=== PATIENT | female | born 1985 | race American Indian/Alaskan Native ===

== ENCOUNTER 2016-02-26 18:11 | Emergency (ER) | payer MEDICAID ==
[2016-02-26 18:34] VITALS: BP 152/111
--- NOTE | 2016-02-26 19:33 | Emergency Department Report ---
Chief Complaint: Allergic Reaction Stated Complaint: CHEST PAIN/SKIN OUT BREAK Time Seen by Provider: 02/26/16 19:29 - HPI History of Present Illness: 30 y/o female complain of allergic reaction x 1 week .pt complain of nausea .pt state she been taking benadryl 50 mg daily x 1 week.pt complain of rash to bilateral legs and arms .pt complain of intense itching . - ROS Review of Systems: per HPI - Exam Vital Signs: Vital Signs 02/26/16 18:29 Temperature 97.9 F Pulse Rate 99 H Respiratory 22 Rate Blood Pressure 152/111 O2 Sat by Pulse 95 Oximetry Physical Exam: GENERAL: The patient is well-developed and well-nourished. Patient is in NAD. HENT: Normocephalic. Atraumatic. Patient has moist mucous membranes. Throat: No erythema, swelling or exudates. EYES: Extraocular motions are intact, PERRL NECK: Supple. No meningitic signs are noted. There is no adenopathy noted. CHEST/LUNGS: Clear to auscultation bilaterally. No wheezing, rales or rhonchi noted. There is no respiratory distress noted. HEART/CARDIOVASCULAR: Regular rate and rhythm. Normal S1 S2. No murmurs, rubs , clicks, or gallops. ABDOMEN: Abdomen is soft, nontender.. Bowel sounds normoactive. There is no abdominal distention. Negative rebound tenderness. : Deferred. SKIN: raise erythema rash noted to bilateral legs and arms with mild edema. There is no diaphoresis. NEURO: The patient is A&Ox3. The patient has no focal neurologic deficits. MUSCULOSKELETAL: There is no tenderness or deformity. There is no limitation range of motion. PSYCH: Pt has appropriate mood and affect. MSE screening note: Focused history and physical exam performed. Due to findings the following was ordered: ED Disposition for MSE Condition: Stable
== END 2016-02-26 20:44 | disposition left against medical advice (07) ==
LOC: ED 18:11
DX: T78.40XA Allergy, unspecified, initial encounter (principal); R11.0 Nausea; X58.XXXA Exposure to other specified factors, initial encounter; Z53.21 Procedure and treatment not carried out due to patient leaving prior to being seen by health care provider